=== PATIENT | female | born 1990 | race African-American/Black ===

== ENCOUNTER 2020-09-30 23:30 | Emergency (ER) | payer OTHER ==
[~2020-09-30] VITALS: Ht 170.2 cm; Wt 62.0 kg
[2020-10-01] MEDS ORDERED: LIDOCAINE HCL/EPINEPHRINE 1%-EPI 1:100,000 50 ML VIAL INFIL ONE (00:30)
[2020-10-01] MEDS ORDERED: TETANUS AND DIPHTHERIA TOX/PF 0.5ML SYR (ADULT) IM ONE (00:30)
[2020-10-01] MEDS ORDERED: ACETAMINOPHEN 325MG TABLET PO ONE (00:45)
[2020-10-01] MEDS ORDERED: TETANUS, DIPHTHERIA, PERTUSSIS VAC/PF 0.5ML (>7YR OLD) IM ONE (01:00)
[2020-10-01] MEDS ORDERED: LIDOCAINE HCL/EPINEPHRINE 1%-EPI 1:100,000 10 ML VIAL IJ SCH (01:00)
[2020-10-01 03:40] VITALS: BP 100/57
[2020-10-01] MEDS ORDERED: IBUPROFEN 600MG TABLET PO ONE (03:45)
[2020-10-01] MEDS ORDERED: IBUP-2029 MT (03:50)
[2020-10-01] MEDS ORDERED: BACITRACIN ZINC OINT UDPKT TOP ONE (04:00)
== END 2020-10-01 05:00 | disposition home or self-care (01) ==
LOC: ER 23:30
DX: S01.81XA Laceration without foreign body of other part of head, initial encounter (principal); S09.8XXA Other specified injuries of head, initial encounter; X95.9XXA Assault by unspecified firearm discharge, initial encounter; Y93.89 Activity, other specified; Y92.9 Unspecified place or not applicable; Z91.018 Allergy to other foods
CPT/HCPCS: 12011; 70450; 90471; 90714; 90715; 99284; J3490; Z7610

== ENCOUNTER 2020-10-05 14:53 | Emergency (ER) | payer OTHER ==
[~2020-10-05] VITALS: Ht 172.7 cm; Wt 61.0 kg
[~2020-10-05 14:53] MED LIST: IBUP-2029 MT
[2020-10-05 15:06] VITALS: BP 119/77
== END 2020-10-05 16:00 | disposition home or self-care (01) ==
LOC: ER 14:53
DX: Z48.02 Encounter for removal of sutures (principal)
CPT/HCPCS: 99281; Z7610